=== PATIENT | female | born 1975 | race Caucasian/White ===

== ENCOUNTER → 2021-11-01 07:44 | Outpatient (CLI) | payer OTHER, SELFPAY ==
--- NOTE | 2021-11-01 07:47 | MM_ITS ---
PROCEDURE INFORMATION: Exam: Bilateral Screening 3D Mammography Exam date and time: 11/01/2021 7:47 AM Age: 46 years old Clinical indication: Encounter for screening mammogram for malignant neoplasm of breast TECHNIQUE: Imaging protocol: Bilateral Screening tomosynthesis and 2D mammography including computer-aided detection (CAD) when performed. COMPARISON: MAMMO SCREENING DIGITAL TOMOSYNTHESIS BILATERAL W CAD 02/01/2019 9:43 AM FINDINGS: MAMMOGRAPHY: Breast composition: The breast tissue is heterogeneously dense, which may obscure small masses. Mass: None. Architectural distortion: None. Calcifications: No suspicious calcifications. Asymmetric density: None. Skin thickening: None. Axillary adenopathy: None. IMPRESSION: No mammographic evidence of malignancy. Annual screening is recommended unless otherwise clinically indicated. ASSESSMENT: BI-RADS Category 1: Negative
== END ==
PROVIDERS: PCP Family Medicine; Visit Provider Family Medicine
DX: Z12.31 Encounter for screening mammogram for malignant neoplasm of breast (principal)
CPT/HCPCS: 77063; 77067

== ENCOUNTER → 2022-01-29 09:56 | Outpatient (CLI) | payer OTHER, SELFPAY ==
--- NOTE | 2022-01-29 10:03 | US_ITS ---
PROCEDURE INFORMATION: Exam: US Left Breast, Complete Exam date and time: 01/29/2022 10:16 AM Age: 46 years old Clinical indication: Concern for lump in the upper outer left breast, noticed last week. TECHNIQUE: Imaging protocol: Complete ultrasound of all four quadrants of the Left breast and the retroareolar regions, including ultrasound of the axilla when performed. COMPARISON: MG MM DIG SCREENING MAMM BI W/CAD 11/01/2021 7:50 AM BU US BREAST BILATERAL 04/02/2013 9:38 AM FINDINGS: Breast: Left sonography, all 4 quadrants, retroareolar and axilla. At 1 o'clock 6 cm from the nipple, corresponding to the palpable area, 4 adjacent masses: (1) lobulated hypoechoic mass which may be a complex cyst, measuring 0.9 by 0.9 x 1.1 cm, (2) lobulated, more cystic appearing, mass which may be a complex cluster of cysts measuring 2.1 x 0.7 by 1.6 cm, (3) lobulated hypoechoic mass which may be a complex cluster of cysts measuring 0.7 by 0.7 x 0.5 cm, and (4) oval hypoechoic probable mildly complicated cyst measuring 0.7 x 0.5 by 0.8 cm. No other cystic or solid masses demonstrated. Several left axillary nodes are demonstrated. At least one may be abnormal, with no definite echogenic hilum demonstrated, measuring 2.0 by 1.6 by 1.3 cm. Several other nodes are sonographically unremarkable with echogenic tootie demonstrated. IMPRESSION: 3 complex cystic masses at the palpable concern at 1 o'clock - biopsy sampling is suggested. One approach may be to biopsy the mass labeled 1, image 9 - with management of the additional masses pending this result or biopsy of masses labelled 1-3 with follow up of mass labeled 4 pending these results. Consider fine-needle aspiration of the possibly abnormal lymph node in the left axilla, image 38. Further evaluation of a palpable abnormality should be based on clinical grounds regardless of radiographic findings or lack thereof. ASSESSMENT: BI-RADS Category 4: Suspicious
== END ==
PROVIDERS: PCP Family Medicine; Visit Provider Physician Assistant
DX: N63.21 Unspecified lump in the left breast, upper outer quadrant (principal)
CPT/HCPCS: 76641

== ENCOUNTER → 2022-02-05 08:06 | Outpatient (CLI) | payer OTHER, SELFPAY ==
--- NOTE | 2022-02-05 08:17 | US_ITS ---
FINAL REPORT CLINICAL HISTORY: ABN MAMM core biposy x's2 1:[address] Garcia FINDINGS: ULTRASOUND-GUIDED LEFT BREAST CORE BIOPSY x2 AND LEFT AXILLARY LYMPH node CORE BIOPSY TECHNIQUE: Limited images were obtained to localize region of interest. The left breast was prepped in a routine sterile fashion and locally anesthetized with 1% lidocaine. Standard written informed consent was obtained. Although original plan was to biopsy only 1 of the left breast lesions, further assessment on date of exam shows 2 adjacent left upper outer quadrant lesions, both equally suspicious. Both lesions were targeted for biopsy along with an enlarged left axillary lymph node. The biopsy needle was positioned within the outer periphery of the rounded lesion located at 1:00 referred to as nodule 1. A total of 3 passes were made with a 18 gauge core biopsy needle. A single biopsy marker clip was deployed within this lesion. Attention was then directed toward the 2nd nodule. The biopsy needle was positioned within the outer periphery of the oval lesion located at 2:00 referred to as nodule 2. A total of 3 passes were made with a 18 gauge core biopsy needle. Because all biopsy marker clips at this facility where of the same configuration, 2 separate biopsy marker clips were deployed within this lesion to differentiate the 1st and 2nd nodules apart mammographically. Attention was then directed toward the left axilla. After achieving local anesthesia, 2 separate core biopsies were acquired with an 18-gauge core biopsy needle. Biopsy marker clips were noted to be in satisfactory position. Postbiopsy mammogram showed postbiopsy changes with clip in satisfactory position. Procedure was well tolerated . CONCLUSION: 1. Technically successful ultrasound guided core biopsy of left breast 2 separate left breast lesions along with an enlarged left axillary lymph node 2. Biopsy marker clips deployed Authenticated by Micheal Garcia MD on 02/06/2022 08:41:30 PM [facility]
--- NOTE | 2022-02-05 08:18 | MM_ITS ---
FINAL REPORT CLINICAL HISTORY: S/P BX. CLIP PLACEMENT FINDINGS: MAMMOGRAM LEFT TECHNIQUE: Standard digital 2-D views COMPARISON: None DENSITY: There are scattered areas of fibroglandular density FINDINGS: Post biopsy marker clips are noted to be in satisfactory position. Postbiopsy changes are noted. There are 2 clips associated with a lesion biopsied at 2:00. There is one clip associated with a lesion biopsied at 1:00. Focal asymmetry is seen in the left upper outer quadrant. Lesions are not well-defined mammographically. IMPRESSION: Biopsy marker clips in good position RECOMMENDATION: Pending histopathology evaluation Authenticated by Micheal Garcia MD on 02/06/2022 08:46:17 PM [facility]
== END ==
PROVIDERS: PCP Family Medicine; Visit Provider Physician Assistant
DX: R68.89 Other general symptoms and signs (principal)
CPT/HCPCS: 10005; 19083; 77065